=== PATIENT | male | born 1970 | race Caucasian/White ===

== ENCOUNTER → 2020-10-13 12:22 | Outpatient (BNVA) | payer OTHER, SELFPAY | PROVIDERS: PCP Internal Medicine; Referring Provider Internal Medicine; Visit Provider Physician Assistant ==

== ENCOUNTER 2020-11-03 08:21 | Outpatient (REF) | payer OTHER, SELFPAY ==
--- NOTE | ~2020-11-03 | XR_ITS ---
EXAMINATION: XR CHEST CLINICAL INFORMATION: Central hypertension COMPARISON: None TECHNIQUE: 2 views of the chest were obtained. FINDINGS: No significant abnormality is noted involving the heart, lungs, mediastinum, bony thorax or soft tissues. XR/XR chest 2V IMPRESSION: Unremarkable examination.
--- NOTE | 2020-11-03 08:27 | ECG_ITS ---
Test Reason : HTN Blood Pressure : / mmHG Vent. Rate : 080 BPM Atrial Rate : 080 BPM P-R Int : 154 ms QRS Dur : 082 ms QT Int : 364 ms P-R-T Axes : 026 027 037 degrees QTc Int : 419 ms Normal sinus rhythm Normal ECG No previous ECGs available Referred By: Charlene Hernández Electronically Signed By:JANIA DODGE
[2020-11-03 09:02] LABS: MANUAL DIFF FLAG NO
[2020-11-03 09:12] LABS: Basophils Absolute Auto 0.1 X10*3/uL (0.0-0.2); Basophils Percent Auto 1.2 % (0-2); Eosinophils Absolute Auto 0.3 X10*3/uL (0.0-0.4); Eosinophils Percent Auto 6.7 % (0-4); Hematocrit 42.8 % (42-52); Hemoglobin 14.6 g/dl (14.0-18.0); Imm Gran Abs Auto 0.01 X10*3/uL (0.00-0.03); Imm Gran Pct Auto 0.2 % (0.0-0.4); Lymphocytes Absolute Auto 1.6 X10*3/uL (1.2-4.9); Lymphocytes Percent Auto 32.4 % (20-40); Mean Corpuscular HGB Conc 34.1 g/dl (31.0-36.0); Mean Corpuscular Hemoglobin 30.4 pg (27.0-33.0); Mean Platelet Volume 10.7 fL (9.4-12.4); Monocytes Absolute Auto 0.4 X10*3/uL (0.1-1.2); Monocytes Percent Auto 7.1 % (2-11); Neutrophils Absolute Auto 2.6 X10*3/uL (2.0-8.3); Neutrophils Percent Auto 52.4 % (45-73); Platelet Count 181 X10*3/uL (160-400); Red Blood Count 4.81 X10*6/uL (4.60-5.80); Red Cell Distribution Width 12.1 % (11.0-16.0); White Blood Count 4.9 X10*3/uL (4.8-10.8)
[2020-11-03 09:32] LABS: Estimated Average Glucose 105 mg/dL; Hemoglobin A1c % 5.3 %
[2020-11-03 09:36] LABS: Alanine Aminotransferase 33 U/L (0-40); Albumin Level 4.6 g/dL (3.5-5.0); Alkaline Phosphatase 53 U/L (39-117); Anion Gap 16 (12-20); Aspartate Amino Transferase 31 U/L (5-37); Bilirubin Total 0.5 mg/dL (0.0-1.0); Blood Urea Nitrogen 21 mg/dL (9-16); C Reactive Protein 0.37 mg/dL (< or = 0.50); Calcium 9.3 mg/dL (8.4-10.2); Carbon Dioxide 23 mmol/L (22-29); Chloride 103 mmol/L (96-108); Cholesterol 182 mg/dL; Estimated Glomerular Filt Rate > 60; Glucose Random 95 mg/dL (60-115); HDL Cholesterol 52 mg/dL; Iron 60 mcg/dL (45-160); LDL Cholesterol Calculated 116 mg/dl; Potassium 4.7 mmol/L (3.3-5.1); Sodium 137 mmol/L (135-145); Total Protein 7.3 g/dL (6.5-8.0); Triglycerides 74 mg/dL
[2020-11-03 09:44] LABS: Percent Iron Saturation 18 % (15-50); Total Iron Binding Capacity 335 mcg/dL (228-428); Unsaturated Iron Binding 275 ug/dL
[2020-11-03 09:59] LABS: TSH reflex Free T4 0.84 uIU/mL (0.32-4.0); Vitamin D 25-OH Total 23.4 ng/mL (>30)
[2020-11-03 10:00] LABS: Folate 12.6 ng/mL (> or = 4.0); Vitamin B12 492 pg/mL (200-900)
[2020-11-03 10:06] LABS: Ferritin 142 ng/mL (20-250)
[2020-11-04 12:31] LABS: H Pylori Breath Test NOT DETECTED (NOT DETECTED)
[2020-11-06 13:02] LABS: Insulin Level Total 3.7 uIU/mL
[2020-11-06 15:52] LABS: Calcium (PTHI) 9.4 mg/dL (8.6-10.3); PTHI 35 pg/mL (14-64)
[2020-11-07 05:45] LABS: Zinc 106 mcg/dL (60-130)
[2020-11-08 13:30] LABS: Vitamin B1 7 nmol/L (8-30)
[2020-11-08 18:51] LABS: Vitamin A 53 mcg/dL (38-98)
== END 2020-11-03 08:22 | disposition home or self-care (01) ==
LOC: HO.XRAY 08:21
PROVIDERS: PCP Internal Medicine; Visit Provider Physician Assistant
DX: I10 Essential (primary) hypertension (principal); E66.9 Obesity, unspecified; G47.30 Sleep apnea, unspecified
CPT/HCPCS: 36415; 71046; 80053; 80061; 82306; 82607; 82728; 82746; 83013; 83036; 83525; 83540; 83970; 84425; 84443; 84590; 84630; 85025; 86140; 93005

== ENCOUNTER → 2020-11-13 08:11 | Outpatient (BNVA) | payer OTHER, SELFPAY | PROVIDERS: PCP Internal Medicine; Visit Provider Dietitian, Registered | DX: E66.9 Obesity, unspecified (principal); J30.2 Other seasonal allergic rhinitis; Z68.36 Body mass index [BMI] 36.0-36.9, adult; Z71.3 Dietary counseling and surveillance | CPT/HCPCS: 97802 ==

== ENCOUNTER → 2020-11-24 08:10 | Outpatient (BNVA) | payer OTHER, SELFPAY | PROVIDERS: PCP Internal Medicine; Visit Provider Physician Assistant ==

== ENCOUNTER → 2020-12-08 08:15 | Outpatient (BNVA) | payer OTHER, SELFPAY | PROVIDERS: PCP Internal Medicine; Visit Provider Surgery ==

== ENCOUNTER 2020-12-12 08:18 | Outpatient (REF) | payer OTHER, SELFPAY | END 2020-12-12 08:19 | disposition home or self-care (01) | LOC: HO.US 08:18 | PROVIDERS: PCP Internal Medicine; Referring Provider Physician Assistant; Visit Provider Dietitian, Registered | DX: Z13.89 Encounter for screening for other disorder (principal) ==

== ENCOUNTER → 2020-12-13 08:08 | Outpatient (BNVA) | payer OTHER, SELFPAY | PROVIDERS: PCP Internal Medicine; Referring Provider Physician Assistant; Visit Provider Dietitian, Registered ==

== ENCOUNTER → 2020-12-18 08:03 | Outpatient (BNVA) | payer OTHER, SELFPAY | PROVIDERS: PCP Internal Medicine; Visit Provider Dietitian, Registered | DX: E66.9 Obesity, unspecified (principal); Z68.36 Body mass index [BMI] 36.0-36.9, adult | CPT/HCPCS: 97803 ==

== ENCOUNTER → 2021-01-22 14:42 | Outpatient (BNVA) | payer OTHER, SELFPAY | PROVIDERS: PCP Internal Medicine; Referring Provider Internal Medicine; Visit Provider Internal Medicine | DX: Z01.810 Encounter for preprocedural cardiovascular examination (principal); I31.9 Disease of pericardium, unspecified; E66.9 Obesity, unspecified; A69.20 Lyme disease, unspecified | CPT/HCPCS: 93005 ==

== ENCOUNTER → 2022-04-01 13:48 | Outpatient (BNVA) | payer OTHER, SELFPAY | PROVIDERS: PCP Internal Medicine; Visit Provider Internal Medicine | DX: Z01.810 Encounter for preprocedural cardiovascular examination (principal); I31.9 Disease of pericardium, unspecified; E66.9 Obesity, unspecified | CPT/HCPCS: 93005 ==

== ENCOUNTER 2022-04-01 14:35 | Outpatient (REF) | payer OTHER, SELFPAY ==
--- NOTE | ~2022-04-01 | XR_ITS ---
EXAMINATION: XR CHEST CLINICAL INFORMATION: Obesity COMPARISON: None TECHNIQUE: 2 views of the chest were obtained. FINDINGS: Lungs are clear. No focal consolidation or mass. Normal pulmonary vascularity. No pleural effusion or pneumothorax. Normal heart size. Minimal degenerative changes of the thoracic spine. XR/XR chest 2V IMPRESSION: No acute pulmonary disease.
== END 2022-04-01 14:36 | disposition home or self-care (01) ==
LOC: HO.XRAY 14:35
PROVIDERS: PCP Internal Medicine; Visit Provider Surgery
DX: Z01.810 Encounter for preprocedural cardiovascular examination (principal); I51.4 Myocarditis, unspecified; E66.9 Obesity, unspecified; Z68.39 Body mass index [BMI] 39.0-39.9, adult
CPT/HCPCS: 71046

== ENCOUNTER → 2022-04-05 08:27 | Outpatient (BNVA) | payer OTHER, SELFPAY | PROVIDERS: PCP Internal Medicine; Visit Provider Surgery | DX: Z13.89 Encounter for screening for other disorder (principal) ==

== ENCOUNTER 2022-04-23 07:56 | Outpatient (REF) | payer OTHER, SELFPAY ==
--- NOTE | ~2022-04-23 | FL_ITS ---
EXAMINATION: XR FLUOROSCOPY UPPER GI WITH AIR CLINICAL INFORMATION: Obesity. COMPARISON: None TECHNIQUE: Fluoroscopic assessment of the upper GI tract was performed in various upright and supine/prone obliquities utilizing thin and thick high density barium contrast material and effervescent granules. FINDINGS: The esophagus was normal in course, caliber, and contour. There was normal distensibility with no fixed segment of narrowing. No focal mucosal abnormality was identified. There was some retention of contrast in the right piriform sinus on multiple swallows noted. Mild esophageal dysmotility was observed. Contrast passed freely across the gastroesophageal junction into the stomach. Small sliding hiatal hernia. There was normal distensibility of the stomach with no focal abnormality identified. There was prompt gastric emptying into the duodenum which demonstrated a normal appearance. Mild gastroesophageal reflux was observed. FLUOROSCOPY TIME: 1.8 minutes DOSE AREA PRODUCT: 28.116 Gy-cm2 (beltran-centimeter squared) FL/FL upper GI w air IMPRESSION: Small sliding hiatal hernia with mild esophageal dysmotility. Mild gastroesophageal reflux noted. Mild retention of contrast in the right piriform sinus seen on multiple swallows.
--- NOTE | ~2022-04-23 | US_ITS ---
EXAMINATION: US COMPLETE ABDOMEN WITH LIVER ELASTOGRAPHY CLINICAL INFORMATION: Obesity. COMPARISON: None. TECHNIQUE: Real-time imaging of the abdominal viscera. Noninvasive ultrasound liver fibrosis assessment is performed using Janett ElastPQ point quantification shear wave elastography (2D-SWE) with a C5-2 MHz transducer. Multiple elastography samples are obtained. FINDINGS: PANCREAS: Limited. The visualized pancreatic head and body are normal in appearance. The remainder of the pancreas is obscured from visualization by the overlying bowel gas. ABDOMINAL AORTA: The proximal and distal aortic segments are normal in caliber. The mid segment is largely obscured by overlapping bowel gas. INFERIOR VENA CAVA: Visualized portions are normal. LIVER: Normal. The liver demonstrates normal size, contour and echogenicity. No focal lesion or intrahepatic biliary duct dilatation. The right lobe measures 18.2 cm in length. The left lobe measures 12.3 cm in length. Portal flow is towards the liver (hepatopetal). Shear wave liver elastography median stiffness is 1.43 m/s (reference: normal median stiffness is 1.3 m/s or less). IQR/median stiffness to assess sampling precision is 0.06 (reference: good quality data set is IQR/median stiffness of 0.15 or less). GALLBLADDER: Normal. The gallbladder is physiologically distended without evidence of stones, sludge, polyps, wall thickening or pericholecystic fluid. COMMON BILE DUCT: Normal in caliber measuring 0.5 cm in diameter. RIGHT KIDNEY: Normal. No hydronephrosis. No renal calculi or focal parenchymal lesions. The kidney measures 10.7 cm in maximum dimension. LEFT KIDNEY: Normal. No hydronephrosis. No renal calculi or focal parenchymal lesions. The kidney measures 10.7 cm in maximum dimension. SPLEEN: Normal. The spleen measures 11.4 cm in maximum dimension. FREE FLUID: None. US/US abdomen comp w elastography IMPRESSION: 1. There is generalized increase in hepatic echotexture, consistent with fatty infiltration or hepatocellular disease. Please correlate clinically. No focal hepatic mass or intrahepatic biliary dilatation is seen. 2. Liver elastography: Measurements are suggestive of compensated advanced chronic liver disease but need further test for confirmation. 3. Technically limited ultrasound examination of the pancreatic tail and abdominal aorta. REFERENCE: Society of Radiologists in Ultrasound Liver Stiffness Thresholds (2020): LIVER STIFFNESS THRESHOLDS: *Liver Stiffness equal or less than 1.3 m/s: High probability of being normal. *Liver Stiffness less than 1.7 m/s: In the absence of other known clinical signs, rules out compensated advanced chronic liver disease. *Liver Stiffness 1.7-2.1 m/s: Suggestive of compensated advanced chronic liver disease but need further test for confirmation. *Liver Stiffness over 2.1 m/s: Rules in compensated advanced chronic liver disease. *Liver Stiffness over 2.4 m/s: Suggestive of clinically significant portal hypertension. QUALITY OF DATA SET: *IQR/Median value equal or less than 0.15 implies a quality data set. *IQR/Median value over 0.15 implies a poor quality data set. SIGNIFICANT CHANGE FROM PRIOR EXAM: Significant change if liver stiffness measurement is 10% or greater from prior exam. OTHER CONSIDERATIONS: The stage of liver fibrosis may be overestimated in the setting of acute hepatitis, liver inflammation, elevated liver function tests, hepatic vascular congestion, obstructive cholestasis, non-fasting state, and infiltrative diseases such as amyloidosis and lymphoma. In some patients with NAFLD, the liver stiffness thresholds for compensated advanced chronic liver disease may be lower. In causes other than viral hepatitis and NAFLD, liver stiffness thresholds are not well established.
== END 2022-04-23 07:57 | disposition home or self-care (01) ==
LOC: HO.US 07:56
PROVIDERS: Visit Provider Surgery
DX: Z01.818 Encounter for other preprocedural examination (principal); E66.9 Obesity, unspecified; I51.4 Myocarditis, unspecified; K21.9 Gastro-esophageal reflux disease without esophagitis; Z68.39 Body mass index [BMI] 39.0-39.9, adult
CPT/HCPCS: 74246; 76705; 76981

== ENCOUNTER → 2022-04-29 09:02 | Outpatient (BNVA) | payer OTHER, SELFPAY | PROVIDERS: PCP Internal Medicine; Visit Provider Surgery | DX: Z13.89 Encounter for screening for other disorder (principal) ==

== ENCOUNTER → 2022-05-24 08:03 | Outpatient (BNVA) | payer OTHER, SELFPAY | PROVIDERS: PCP Internal Medicine; Visit Provider Surgery | DX: Z13.89 Encounter for screening for other disorder (principal) ==

== ENCOUNTER → 2022-05-30 13:00 | Outpatient (BNVA) | payer OTHER, SELFPAY | PROVIDERS: PCP Internal Medicine; Visit Provider Counselor Mental Health | DX: F41.1 Generalized anxiety disorder (principal); E66.9 Obesity, unspecified; Z86.59 Personal history of other mental and behavioral disorders | CPT/HCPCS: 90791 ==

== ENCOUNTER → 2022-06-21 13:08 | Outpatient (BNVA) | payer OTHER, SELFPAY | PROVIDERS: PCP Internal Medicine; Visit Provider Surgery | DX: Z13.89 Encounter for screening for other disorder (principal) ==

== ENCOUNTER 2022-06-28 09:23 | Outpatient (REF) | payer OTHER, SELFPAY ==
[2022-06-28 10:53] LABS: MANUAL DIFF FLAG NO
[2022-06-28 12:01] LABS: Prothrombin Time 11.2 SEC (10.0-13.1)
[2022-06-28 12:02] LABS: Basophils Absolute Auto 0.1 X10*3/uL (0.0-0.2); Basophils Percent Auto 0.8 % (0-2); Eosinophils Absolute Auto 0.2 X10*3/uL (0.0-0.4); Eosinophils Percent Auto 3.7 % (0-4); Hemoglobin 14.5 g/dl (14.0-18.0); Imm Gran Abs Auto 0.02 X10*3/uL (0.00-0.03); Imm Gran Pct Auto 0.3 % (0.0-0.4); Lymphocytes Absolute Auto 1.4 X10*3/uL (1.2-4.9); Lymphocytes Percent Auto 22.3 % (20-40); Mean Corpuscular HGB Conc 33.7 g/dl (31.0-36.0); Mean Corpuscular Hemoglobin 29.4 pg (27.0-33.0); Mean Corpuscular Volume 87.2 fL (80.0-98.0); Mean Platelet Volume 10.4 fL (9.4-12.4); Monocytes Absolute Auto 0.4 X10*3/uL (0.1-1.2); Monocytes Percent Auto 6.6 % (2-11); Neutrophils Absolute Auto 4.1 x10*3/uL (2.0-8.3); Neutrophils Percent Auto 66.3 % (45-73); Platelet Count 205 X10*3/uL (160-400); Red Blood Count 4.93 X10*6/uL (4.60-5.80); Red Cell Distribution Width 12.9 % (11.0-16.0); White Blood Count 6.2 X10*3/uL (4.8-10.8)
[2022-06-28 12:04] LABS: Partial Thromboplastin Time 30.2 SEC (26.0-36.4)
[2022-06-28 12:30] LABS: Estimated Average Glucose 108 mg/dL; Hemoglobin A1c % 5.4 %
[2022-06-28 13:44] LABS: Alanine Aminotransferase 26 U/L (0-40); Albumin Level 4.5 g/dL (3.5-5.0); Alkaline Phosphatase 76 U/L (39-117); Anion Gap 17 (12-20); Aspartate Amino Transferase 26 U/L (5-37); Bilirubin Total 0.7 mg/dL (0.0-1.0); Blood Urea Nitrogen 15 mg/dL (9-16); C Reactive Protein 0.74 mg/dL (< or = 0.50); Calcium 8.9 mg/dL (8.4-10.2); Carbon Dioxide 25 mmol/L (22-29); Chloride 105 mmol/L (96-108); Cholesterol 229 mg/dL; Estimated Glomerular Filt Rate > 60; Glucose Random 108 mg/dL (60-115); HDL Cholesterol 65 mg/dL; LDL Cholesterol Calculated 149 mg/dl; Potassium 4.6 mmol/L (3.3-5.1); Sodium 142 mmol/L (135-145); Triglycerides 79 mg/dL
[2022-06-28 14:00] LABS: Insulin 10 uU/mL (2-29); TSH reflex Free T4 0.99 uIU/mL (0.32-4.0)
== END 2022-06-28 09:24 | disposition home or self-care (01) ==
LOC: HO.LAB 09:23
PROVIDERS: PCP Internal Medicine; Referring Provider Internal Medicine; Visit Provider Surgery
DX: E66.9 Obesity, unspecified (principal); Z68.35 Body mass index [BMI] 35.0-35.9, adult; K21.9 Gastro-esophageal reflux disease without esophagitis
CPT/HCPCS: 36415; 80053; 80061; 83036; 83525; 84443; 85025; 85610; 85730; 86140

== ENCOUNTER 2022-07-09 07:23 | Inpatient (IN) | payer OTHER, SELFPAY ==
--- NOTE | 2022-07-04 23:09 | MHC.SHP ---
Pre-Procedural Eval Section A Date of Service: 07/04/22 The patient is an INPATIENT: Yes The History & Physical has been completed within 30 days and I have reviewed it.: Yes Section B Chief Complaint: Obesity, unspecified Relevant Family History (Specify if Yes): No Relevant Social History: None Present Medications: None Medical History: No relevant PMH History of Previous Operations: No relevant previous surgery Allergies: Allergies Allergy/AdvReac Type Severity Reaction Status Date / Time Seasonal Allergies Allergy Severe Anaphylaxis Verified 06/28/22 14:20 Review of Systems Sugical H&P ROS: Negative: Constitution, Cardiovascular, Respiratory, Neurological, Psychiatric, Hem-Onc, Allergic/Immunologic, Gastrointestinal, Genitourinary, Musculoskeletal, Integumentary, Endocrine and Eyes/Ears/Nose/Throat Exam Surgical H&P Exam: Normal: HEENT, Normal: Heart, Normal: Lungs, Normal: Extremities, Normal: Abdomen, Normal: Skin and Normal: Neurological Plan Diagnosis/Plan: Unchanged I have reviewed the history and physical and performed a pertinent physical examination on my patient. No changes have occurred unless specified. Time Spent With Patient Time: Total time managing care of this patient today ____ minutes.
[2022-07-05 09:28] VITALS: BMI 34.6
--- NOTE | 2022-07-08 10:44 | P.CONAN_ITS ---
HPI - Anesthesia Eval Consult details Narrative: 51yo M for Gastrectomy Sleeve EGD possible diaphragmatic hernia,possible ventral hernia,possible open. Cardiac cleared [facility] Active Problems Active Problems: All Active Problems (Updated 07/05/22 @ 10:12 by Kallie Barahona RN) Obesity (Acute) Sleep apnea with use of continuous positive airway pressure (CPAP) (Acute) Hypertension (Acute) History of depression (Acute) Adjustment disorder, unspecified (Acute) Obesity (Acute) BMI 37.0-37.9, adult (Acute) Vitamin B1 deficiency (Acute) Vitamin B12 deficiency (Acute) Myocarditis (Acute) Preoperative cardiovascular examination (Acute) Lyme disease (Acute) Pericarditis (Acute) BMI 39.0-39.9,adult (Acute) BMI 38.0-38.9,adult (Acute) BMI 35.0-35.9,adult (Acute) AMAYA (generalized anxiety disorder) (Acute) GERD (gastroesophageal reflux disease) (Acute) Past Medical History Medical History Anxiety and depression GERD (gastroesophageal reflux disease) History of Clostridioides difficile colitis History of pericarditis HTN (hypertension) Hx of Lyme disease Insomnia RUI on CPAP Family History Family History Mother Hypertension Father No problems noted. Sister No problems noted. Daughter No problems noted. Daughter No problems noted. Surgical History Surgical History Hx of colonoscopy Hx of endoscopy Social History Social History Household Members: Significant Other Housing: House Are you a primary managed care coordinator to a significant other at home: Yes Do you presently have visiting nurse or other home services: No Alcohol intake: current Alcohol intake frequency: former alcohol drinker Patient Tobacco Use Status: Never used Tobacco Meds Allergies Allergy/AdvReac Type Severity Reaction Status Date / Time Seasonal Allergies Allergy Severe Unknown Verified 07/05/22 09:54 Home Medications Medication Instructions Recorded Confirmed Last Taken Type fluoxetine 20 mg capsule (Prozac) 20 mg PO DAILY 10/13/20 07/05/22 Unknown History diltiazem HCl 120 mg 120 mg PO DAILY 01/11/22 07/05/22 Unknown History capsule,extended release 24 hr, controlled (DILT-XR) melatonin 3 mg capsule 3 mg PO BEDTIME PRN Sleep 01/23/22 07/05/22 Unknown History tadalafil 20 mg tablet 10 mg PO DAILY PRN Sexual Activity 04/01/22 07/05/22 Unknown History ondansetron 4 mg disintegrating 4 mg PO Q8H PRN Nausea And Vomiting 07/05/22 07/05/22 Unknown History tablet Exam Exam Date and Time: July 08, 2022 1044 Height,Weight and Vital Signs: Height 5 ft 6 in Weight 97.341 kg Pertinent Lab Results Pertinent Lab Results: Laboratory Tests 06/28/22 10:50 Blood Type O Positive Antibody Screen NEGATIVE Laboratory Tests 06/28/22 06/28/22 10:50 10:50 WBC 6.2 Hgb 14.5 Hct 43.0 Plt Count 205 Sodium 142 Potassium 4.6 Chloride 105 Carbon Dioxide 25 BUN 15 Creatinine 1.01 Narrative Narrative: EKG 03/2022 sinus rhythm at 81/Min; no significant ST-T changes and otherwise unremarkable.? Normal NV and corrected QT Per 03/2022 cardiac note E[facility]ocardiogram [facility]-LVEF 73% without any wall motion a bnormalities; no significant valvular pathology.? Pulmonary hypertension not commented upon as there was no significant tricuspid regurgitation.? Otherwise unremarkable.? In the 14 day cardiac event monitor, average heart rate was 74/Min.? No significant arrhythmias otherwise. Assessment and Plan Assessment Anesthesia Assessment: Chart Reviewed
[2022-07-08 15:30] LABS: COVID-19 Test Negative (Negative); IDNOW Serial# 08D9AD1C
[2022-07-09] VITALS (10 sets, daily range): BP systolic 123–154; BP diastolic 70–85; PULSE 71–106; RESP 16–20; TEMP 36.1–36.9; O2SAT 94–99
--- NOTE | 2022-07-09 07:34 | PC.NURSE ---
patient intialed blood refusal on surgical consent. per patient he wants blood if it is necessary during the procedure and does not refuse blood. per Partha Warner, clinic physician director mihai to use single line cross out on consent with patient intials with the word error.
--- NOTE | 2022-07-09 07:48 | PHA.MEDREC ---
Pharmacy Consult ? Medication Reconciliation Pharmacy has completed the medication reconciliation. Reviewed med rec done by nursing
[2022-07-09] MEDS: Lactated Ringers 1,000 ML 100 ML IVCONT ×3 (07:50→20:36)
[2022-07-09] MEDS: Aprepitant 32 MG/4.4 ML VIAL IVPUSH (07:50)
--- NOTE | 2022-07-09 08:31 | PM.OP ---
Brief Operative Note Date of Service: 07/09/22 Pre-op diagnosis: Severe obesity with comorbidities (see below) Post-op diagnosis: same Procedure: INITIAL PATIENT BMI ON PRESENTATION AT OUR OFFICE: 33.7 kg/m2 LAST BMI BEFORE SURGERY: 30.7 kg/m2 COMORBIDITIES: sleep apnea on CPAP, hypertension, depression, anxiety, insomnia, liver steatosis, diaphragmatic hernia, GERD ?The patient presented to the Weight Management Program with significant obesity that was negatively impacting the patient's comorbidities as listed above.? The program is a phased program with a special focus on preoperative medical weight management to promote substantial weight loss and prepare the patients for the second phase of the program: bariatric surgery. The patient participated in an intensive weekly lifestyle ?intervention and exercise program during which the patient ?has lost between the initial office visit and the last preoperative visit 30.7lbs, or 12.52% of initial actual body weight. It was deemed appropriate for the patient to now have bariatric surgery. In light of the current Covid-19 pandemic and the well documented strong association of obesity and increased risk of worse outcomes if infected with Covid-19 (REFERENCES:https://pubmed.ncbi.nlm.nih.gov/59589753/,?https://pubmed.ncbi.nlm.nih.gov/72091218/), any delay in undergoing bariatric surgery may lead to the patient's worsening health condition and increased?risk of more severe Covid-19 disease if infected. In addition a recent?study from [facility] published in [facility] on 03/12/2021 ([email or web address]) found that, among patients with obesity, substantial weight loss achieved with surgery was associated with improved outcomes of COVID-19 infection. The findings suggest that obesity can be a modifiable risk factor for the severity of COVID-19 infection. In addition, the patient met the BMI-criteria for bariatric surgery based on the BMI on initial presentation. The patient should not be penalized for achieving such weight loss because ?it is not sustainable long-term without surgical intervention and it was achieved in preparation for bariatric surgery ?under my direction and based on my published research ([email or web address] and?https://www.soard.org/article/[email or web address])87830-X/pdf) ?that a 10% preoperative weight loss improves long-term weight loss after surgery and reduces perioperative complications.? Insurance carriers such as [facility] have endorsed my recommendations ?and have included in their policies criteria to include a 10% preoperative weight loss requirement. PROCEDURE: Esophago-gastroscopy, laparoscopic lysis of adhesions, laparoscopic sleeve gastrectomy and laparoscopic gastropexy INDICATIONS: This is a 51 year-old male who was electively scheduled for laparoscopic, possibly open sleeve gastrectomy. The risks and complications of the procedure were discussed with the patient in advance, particularly the possibility of ; pulmonary embolism; staple line leak; bleeding; GERD; cardiac, pulmonary, or renal complications; as well as long-term problems such as insufficient weight loss, vitamin deficiency, strictures, or ulcers. The patient understood all the risks, and was in agreement to proceed with surgery. DESCRIPTION OF PROCEDURE: After informed consent was obtained from the patient, the patient was given preoperative antibiotics, and was transferred to the operating room. After successful induction of general anesthesia, pneumatic compression devices were placed on both lower extremities. An upper endoscopy was performed next. The oropharynx and esophagus appeared to be within normal limits. There was no diaphragmatic hernia present consistent with the findings of the preoperative upper GI. The stomach was entered. Then after all fluid and air were suctioned and the stomach was fully decompressed, the scope was withdrawn and secured in the mid esophagus. The patient was then prepped and draped in the usual sterile manner, and abdominal access was established at the right upper quadrant with the Markell technique. A 12 mm blunt port was inserted, and the abdomen was insufflated with CO2 to a pressure of 15 mmHg. Under direct visualization, additional ports were placed, specifically two 5 mm Versi-step ports to the left upper quadrant, and a 5 mm Versi-Step port to the right upper quadrant. 1% lidocaine plain was used to infiltrate all port sites as well as all fascia defects. Following that, the patient was placed in a steep reverse Trendelenburg position. An additional 5 mm port was placed to the right flank for the Mediflex retractor that was used to retract the left lobe of the liver. The gastro-esophageal fat pad was opened with the ultrasonic device (Thunderbeat, Olympus) and the anterior esophagus and hiatus were exposed. The angle of His was opened with the ultrasonic device the fundus of the stomach from any diaphragmatic and splenic attachments. I then opened the gastrocolic ligament between the transverse colon and the greater curvature of the stomach with the ultrasonic device to enter the lesser sac and facilitate the ligation of the short gastric vessels. I started at a mid-point along the greater curvature and using the Thunderbeat, all short gastric vessels were divided all the way to the angle of His until the left kulwinder was completely dissected at its entirety. I then divided the gastro-colic ligament distally to a distance of about 3-4 cm proximal to the pylorus. There were extensive congenital adhesions between the pancreas and posterior gastric wall. Those were lysed completely with the ultrasonic device. Adhesiolysis took approximately 45 min to complete. The stomach was then divided transversely with one Endo SAEED-45 purple, two SAEED-45 orange loads and four SAEED-60 articulating orange loads using the AEON stapler and loads. Every effort was made that the gastric sleeve had a tubular shape and an even caliber throughout. Once the sleeve resection was completed, the staple line of the gastric sleeve was reinforced with Hemoclips. The resected stomach was retrieved without difficulty from the Markell port. A gastropexy was then performed in order to prevent postoperative GERD and partial gastric volvulus. Several interrupted 2.0 Surgidac sutures were placed between the sleeve's staple line and the previously divided greater omentum and gastro-colic ligament using the Endo-Stitch device. ?An upper endoscopy was performed. There was no narrowing at the GE junction. The scope was easily advanced all the way to the pylorus which was clearly visualized. There was no narrowing anywhere and the sleeve's caliber was even throughout. The sleeve's staple line was inspected and there was no evidence of ischemia, bleeding or dehiscence. At that point the gastroscope was withdrawn from the patient?s mouth while we were decompressing the bowel and the stomach from any remaining air. I looked into the lesser sac to see how the sleeve was situating and it was situating well. There was no bleeding from the staple line, spleen, or short gastric vessels. The Mediflex retractor was removed, and the undersurface of the liver was inspected and there was no bleeding. The patient was placed in supine position. I closed the fascial defect of the 12 mm port site with a figure of eight #1 Polysorb suture. Then 30cc Ropivacaine plain with 10 mg of Dexamethasone were used to infiltrate the fascial closure as well as all skin incisions. A total of 7ml Zynrelef was applied in the Markell wound. At this point, the abdomen was deflated, all ports were removed under direct vision, and no bleeding was noted from any of the port sites. The skin incisions were irrigated with saline and were closed with 4-0 absorbable monofilament sutures. Steri-Strips and OpSites were used to cover all incisions. The patient was extubated and was transferred in stable condition to the recovery room for further care. I was present and performed all marlow parts of the procedure. Edgar was the special education teaching assistant. There were no residents to assist with this case. Robert Mayberry MD, PhD, FACS Surgeon: Lito Mayberry MD Anesthesia: GETA, local and other (TAP block and 7ml Zynrelef) Was an Vp Strategic Planning used for this Procedure?: No Vp Strategic Planning: Charlene Hernández Estimated blood loss (mL): 10 IV fluids (mL): 2,600 Urine output (mL): 0 (No Burns to record output) Pathology: other (Stomach) Condition: stable Disposition: PACU
--- NOTE | 2022-07-09 08:40 | PM.PNGS ---
Subjective Subjective Date of Service: 07/10/22 Interval history: Feels well. Mild incisional pain. He is tolerating phase 1 bariatric diet Physical Exam Vital Signs: Vital Signs: Last Vital Signs Temp 98.0 F 07/09/22 07:46 Pulse 106 H 07/09/22 07:46 Resp 16 07/09/22 07:46 BP 123/77 07/09/22 07:46 Pulse Ox 99 07/09/22 07:46 O2 Del Method Room Air 07/09/22 07:46 BMI result Body Mass Index 34.6 GI: Inspection: Yes normal to inspection, Yes incision (clean, dry and intact) and Yes obesity Palpation (GI): Soft to palpation Extrem: Right lower extremity: normal to inspection (no calf tenderness) Left lower extremity: normal to inspection (no calf tenderness) Objective Data Active Medications Lactated Ringer's (Lr) 1,000 mls @ 100 mls/hr IVCONT .Q10H TALHA Last Admin: 07/09/22 07:50 Dose: 100 mls/hr Documented By: HERON Labs 07/10/22 06:08 07/10/22 06:08 Labs: Laboratory Results - last 24 hr 07/08/22 14:55 COVID-19 (DONAVAN) Negative COVID-19 Clin Com See Note Procedures Date of Service Date of Service: 07/10/22 Progress Note: A&P Assessment and plan (1) Obesity: Status: Acute Assessment and Plan: s/p laparoscopic sleeve gastrectomy, lysis of adhesions and gastropexy Doing well Will check am labs and if OK the patient will be discharged home (2) BMI 33.0-33.9,adult: Status: Acute (3) Sleep apnea with use of continuous positive airway pressure (CPAP): Status: Acute (4) Hypertension: Status: Acute (5) History of depression: Status: Acute (6) GERD (gastroesophageal reflux disease): Status: Acute (7) Diaphragmatic hernia: Status: Acute (8) Steatosis, liver: Status: Acute (9) Insomnia: Status: Acute (10) S/P laparoscopic sleeve gastrectomy: Status: Acute (11) Congenital intra-abdominal adhesions: Status: Acute Time Spent With Patient Time: Total time managing care of this patient today ____ minutes. Quality Stroke Does the patient have a stroke diagnosis?: No VTE Prior VTE?: No VTE Risk Level:: Surgical - moderate VTE Device Contraindication: N/A - Device Ordered VTE Drug Contraindication: Treatment Not Indicated
--- NOTE | 2022-07-09 09:45 | HO.ANESPROP2 ---
[facility] Active Problems Active Problems: All Active Problems (Updated 07/09/22 @ 08:42 by Lito Mayberry MD) Insomnia (Acute) Steatosis, liver (Acute) Diaphragmatic hernia (Acute) BMI 33.0-33.9,adult (Acute) Obesity (Acute) Sleep apnea with use of continuous positive airway pressure (CPAP) (Acute) Hypertension (Acute) History of depression (Acute) Adjustment disorder, unspecified (Acute) Obesity (Acute) BMI 37.0-37.9, adult (Acute) Vitamin B1 deficiency (Acute) Vitamin B12 deficiency (Acute) Myocarditis (Acute) Preoperative cardiovascular examination (Acute) Lyme disease (Acute) Pericarditis (Acute) BMI 39.0-39.9,adult (Acute) BMI 38.0-38.9,adult (Acute) BMI 35.0-35.9,adult (Acute) AMAYA (generalized anxiety disorder) (Acute) GERD (gastroesophageal reflux disease) (Acute) Past Medical History Medical History Anxiety and depression GERD (gastroesophageal reflux disease) History of Clostridioides difficile colitis History of pericarditis HTN (hypertension) Hx of Lyme disease Insomnia RUI on CPAP Family History Family History Mother Hypertension Father No problems noted. Sister No problems noted. Daughter No problems noted. Daughter No problems noted. Surgical History Surgical History Hx of colonoscopy Hx of endoscopy History of Problems with Anesthesia: No Social History Social History Are you a primary spiritual care coordinator to a significant other at home: Yes Do you presently have visiting nurse or other home services: No Alcohol intake: current Alcohol intake frequency: former alcohol drinker Patient Tobacco Use Status: Never used Tobacco Use of substances other than those prescribed or required for medical reasons: No Have you been hit, kicked, punched, or otherwise hurt by someone within the past year? If so, by whom?: No Advance Directives: No Advance Directives Information Provided: Yes Advance Directives on File: No Recently lost weight without trying: No Nutrition Risks: No Nutritional Risk Poor oral hygiene: No Meds Allergies Allergy/AdvReac Type Severity Reaction Status Date / Time Seasonal Allergies Allergy Severe Unknown Verified 07/05/22 09:54 Active Medications: Current Medications Lactated Ringer's (Lr) 1,000 mls @ 100 mls/hr IVCONT .Q10H TALHA Last Admin: 07/09/22 07:50 Dose: 100 mls/hr Home Medications Medication Instructions Recorded Confirmed Last Taken Type fluoxetine 20 mg capsule (Prozac) 20 mg PO DAILY 10/13/20 07/05/22 Unknown History diltiazem HCl 120 mg 120 mg PO DAILY 01/11/22 07/05/22 Unknown History capsule,extended release 24 hr, controlled (DILT-XR) melatonin 3 mg capsule 3 mg PO BEDTIME PRN Sleep 01/23/22 07/05/22 Unknown History omeprazole 20 mg capsule,delayed 20 mg PO DAILY 01/23/22 07/05/22 Unknown History release tadalafil 20 mg tablet 10 mg PO DAILY PRN Sexual Activity 04/01/22 07/05/22 Unknown History ondansetron 4 mg disintegrating 4 mg PO Q8H PRN Nausea And Vomiting 07/05/22 07/05/22 Unknown History tablet Exam Exam Date and Time: July 09, 2022 0945 Height,Weight and Vital Signs: Height 5 ft 6 in Weight 97.341 kg Last Vital Signs Temp 98.0 F 07/09/22 07:46 Pulse 106 H 07/09/22 07:46 Resp 16 07/09/22 07:46 BP 123/77 07/09/22 07:46 Pulse Ox 99 07/09/22 07:46 O2 Del Method Room Air 07/09/22 07:46 Pertinent Lab Results Pertinent Lab Results: Laboratory Tests 06/28/22 07/08/22 10:50 14:55 COVID-19 ([facility]) Negative COVID-19 Clin Com See Note Blood Type O Positive Antibody Screen NEGATIVE Airway Mallampati Class: III (full raya) TM Dist: >3cm Neck ROM: Full Loose/Missing/Broken Teeth: No Heart: RRR Lungs: CTA Assessment and Plan Assessment Anesthesia Assessment: Anesthesia Plan Discussed and Chart Reviewed Final Anesthetic Review History of Problems with Anesthesia: No NPO: Yes ASA Class: III Final Preanesthetic Review: Meds/Allgs Chart Reviewed, Consent Obtained/Reviewed and Anes Risks/Benef Reviewed Patient Risk: Intermediate Procedure Risk: Intermediate Anesthetic Plan Anesthetic Plan: GA Disposition: Standard PACU
--- NOTE | 2022-07-09 11:32 | PM.DS ---
DS: Providers Provider Date of Service: 07/10/22 Date of admission: 07/09/22 07:23 Primary care physician: Sergey Mario MD DS: Diagnosis Discharge Diagnosis (1) Obesity: Status: Acute (2) BMI 33.0-33.9,adult: Status: Acute (3) Sleep apnea with use of continuous positive airway pressure (CPAP): Status: Acute (4) Hypertension: Status: Acute (5) History of depression: Status: Acute (6) GERD (gastroesophageal reflux disease): Status: Acute (7) Diaphragmatic hernia: Status: Acute (8) Steatosis, liver: Status: Acute (9) Insomnia: Status: Acute (10) S/P laparoscopic sleeve gastrectomy: Status: Acute DS: Summary Hospital Course Hospital Course: ADMITTING DIAGNOSIS: obesity, HTN, RUI, GERD DISCHARGE DIAGNOSIS: same, s/p laparoscopic sleeve gastrectomy PAST SURGICAL HISTORY: PROCEDURE: upper endoscopy, laparoscopic sleeve gastrectomy DISCHARGE SUMMARY: History of Present Illness: The patient is a 51 year-old man with a BMI of 38.2 kg/m2 and associated co-morbidities as described above. The patient had extensive work-up, lost 26.9 lbs preoperatively and was electively scheduled for laparoscopic, possible open sleeve gastrectomy and gastropexy. Risks and complications of the surgery were discussed with the patient in advance, particularly the possibility of , pulmonary embolism, anastomotic leak, bleeding, bowel injury, GERD, cardiac, renal or pulmonary complications. The patient understood all the risks and was in agreement with the surgical plan. Hospital Course: The patient underwent an uneventful laparoscopic sleeve gastrectomy with gastropexy on the day of admission. Postoperatively, the patient was transferred to the surgical floor. The patient received IV Acetaminophen and IV dilaudid for pain control. Patient was started on bariatric phase 1 diet POD #0. On postoperative day one, the patient was feeling well without nausea, vomiting, fevers, or tachycardia. The patient had some mild incisional pain and the abdomen was soft. On the morning of postoperative day one, the patient was continued on 1 ounce of water or ice every half hour. During the day, the patient did fairly well, having some incisional pain, but able to ambulate adequately and to tolerate liquids well. Since the patient is doing well, we decided that the patient was ready to be discharged. The patient was given instructions to follow-up with me next week and to call my office for any fever over 101, persistent abdominal pain, nausea, vomiting, GERD, symptoms of DVT such as calf tenderness, or leg swelling, or pulmonary embolism such as chest pain or shortness of breath. The patient was also instructed to drink 40-60 ounces of liquids per day using the 1-ounce cups. The patient had been given prescriptions for Tylenol for pain, Zofran prn for nausea, and pantoprazole and carafate previously. The patient was encouraged to ambulate and use the incentive spirometer. The patient was allowed to shower, but no baths, and encouraged to stay active at home. All of these instructions were given to the patient personally. All questions were answered and the patient understood all instructions, the instructions were also given to the patient in print. Time Spent with Patient Time attestation: Total time managing care of this patient today ____ minutes. Discharge coordination time: Less than 30 minutes Quality: Safe Use of Opioids Does Pt have an Active Cancer Diagnosis on the Problem List?: No Quality: Stroke Does the patient have a stroke diagnosis?: No Physical Exam Vital Signs: Vital Signs: Last Vital Signs Temp 97.8 F 07/09/22 11:25 Pulse 97 07/09/22 11:25 Resp 18 07/09/22 11:25 BP 140/77 H 07/09/22 11:25 Pulse Ox 99 07/09/22 11:25 O2 Del Method Simple Mask 07/09/22 11:25 O2 Flow Rate 6 07/09/22 11:25 BMI result Body Mass Index 34.6 DS: Data Data Completed and Pending Pending studies at discharge: Pending at discharge 07/09/22 10:32 Surgical [PTH] Routine Labs on day of discharge: Laboratory Results - last 24 hr 07/08/22 14:55 COVID-19 ([facility]) Negative COVID-19 Clin Com See Note Discharge Plan Discharge Anticipated Discharge Date/Time: 07/10/22 10:28 Patient Disposition: Home, Self-Care Discharge Diagnosis: s/p sleeve gastrectomy Referrals: Sergey Mario MD [Primary Care Provider] - 1 Week Discharge Medications: Continued ondansetron 4 mg tablet,disintegrating 4 mg PO Q8H PRN (Reason: Nausea And Vomiting) fluoxetine [Prozac] 20 mg capsule 20 mg PO DAILY melatonin 3 mg capsule 3 mg PO BEDTIME PRN (Reason: Sleep) diltiazem HCl [DILT-XR] 120 mg capsule,ext.rel 24h degradable 120 mg PO DAILY pantoprazole 40 mg tablet,delayed release (DR/EC) 40 mg PO DAILY Qty: 30 2RF sucralfate 100 mg/mL suspension 10 ml PO BID Qty: 400 2RF Held tadalafil 20 mg tablet 10 mg PO DAILY PRN (Reason: Sexual Activity) Hold Instructions: Resume after 4 weeks Discontinued cholecalciferol (vitamin D3) 25 mcg (1,000 unit) capsule 25 mcg PO DAILY Qty: 30 6RF phentermine 37.5 mg capsule 37.5 mg PO DAILY Qty: 8 0RF Rx Instructions: must administer 30 minutes before or 1-2 hours after breakfast omeprazole 20 mg capsule,delayed release(DR/EC) 20 mg PO DAILY Discharge Orders: Discharge Order (Routine); Ordered 07/10/22 Ordered By: Lito Mayberry Activity on Discharge: No heavy lifting Stand Alone Forms: Patient Portal Discharge page Care Plan Goals: weight loss Health Concerns: obesity Plan of Treatment: No tub baths, sex or returning to work until discussed at first post op appointment. No exercise, alcohol, tobacco or illegal drug use. Continue to use incentive spirometer hourly while awake. Walk in home for 5- 10 minutes every 2 hours during the first week. Continue phase 1 diet today and start phase 2 diet tomorrow morning. Follow all instructions in the bariatric handbook and call with any questions. 1. Please call your doctor or come back to the emergency room should any new symptoms arise. 2. You will receive a courtesy call from [facility] 24-48 hours after discharge. 3. Activity: abstain from alcohol, practice limited stair climbing, no bending, no driving, no exercise, no illicit substances, no lifting, no sex, no tub bath, no work. 4. Diet: continue as discussed with bariatric team.. 5. Dressing Change/Wound Care: Do not change or remove surgical dressings unless they are wet or soiled. 6. Call your doctor if: - Your temperature exceeds 101.5 F - You experience excessive pain or swelling - You have an unexpected reaction to medication - You have excessive bleeding - You experience continued vomiting/nausea - Your incision begins to separate - Your incision shows signs of infection such as increased redness, swelling, excessive pain, heat, or drainage (light blood or clear fluid is normal) 7. General instructions: No lifting greater than 5 lbs for the next 4 weeks[address] driving within 24 hours of taking narcotic pain medications. If you do not move your bowels in the next 2 days, please take milk of magnesia over the counter. Please follow the post op diet and do not advance your diet until you are seen in the office in about 2 weeks. Please walk around your home every hour or two to prevent blood clots from forming in your legs. You do not need to wake from sleeping to walk. Please sleep in a bed or couch to prevent kinking at the hips and knees. Please take your incentive spirometer (your lung egg worker) home with you and use it for the next few days to prevent pneumonias. You may shower, no hot tubs, baths or swimming pools. Please call the office with any questions or concerns such as increasing abdominal pain, fever, chills, shortness of breath, chest pain, leg pain or swelling, or redness or drainage from your incisions. Do not hesitate to contact the office with any questions at . The patient's medical history has been reviewed and they are considered low risk for post op DVT and therefore DVT prophylaxis is not considered necessary. Travel after surgery was reviewed. The patient has not disclosed any travel plans during the first 30 days after surgery and they have been advised that within the first 30 days after surgery any bus, plane, train or car travel over 2 hours in duration is contraindicated due to the possibility of developing blood clots from immobility. Any travel, needs to include periods of ambulation of 10 minutes in duration every 2 hours. The patient was instructed to discuss any plans for travel during this period with their bariatric surgeon. Assessment: stable, spost op sleeve gsatrectomy
[2022-07-09 12:14] LABS: Hematocrit 43.8 % (42.0-52.0); Hemoglobin 14.7 g/dl (14.0-18.0)
[2022-07-09 12:25] LABS: Anion Gap 19 (12-20); Blood Urea Nitrogen 15 mg/dL (9-16); Calcium 8.7 mg/dL (8.4-10.2); Carbon Dioxide 20 mmol/L (22-29); Chloride 103 mmol/L (96-108); Creatinine Clr Calc Pharmacy 112.2; Estimated Glomerular Filt Rate > 60; Glucose Random 129 mg/dL (60-115); Potassium 5.1 mmol/L (3.3-5.1); Sodium 137 mmol/L (135-145)
[2022-07-09] MEDS: Famotidine/PF 20 MG/2 ML VIAL IVPUSH ×2 (12:41→20:35)
[2022-07-09] MEDS: ceFAZolin Sodium/Dextrose,Iso 2 GM/50 ML PIGGYBACK IV (14:02)
[2022-07-09] MEDS: Acetaminophen 1,000 MG/100 ML PIGGYBACK 16.7 MG IV ×2 (15:27→20:36)
[2022-07-09] MEDS: 0.9 % Sodium Chloride Flush 3 ML SYRINGE IVFLUSH (20:36)
[2022-07-09] MEDS: dilTIAZem HCL SR 60 MG CAP.ER.12H 120 MG PO (23:25)
[2022-07-10] MEDS: Acetaminophen 1,000 MG/100 ML PIGGYBACK 16.7 MG IV (02:28)
[2022-07-10 04:00] VITALS: BP 134/75; PULSE 77; RESP 16; TEMP 36.5; O2SAT 97
[2022-07-10] MEDS: Lactated Ringers 1,000 ML 100 ML IVCONT (06:00)
[2022-07-10 06:38] LABS: MANUAL DIFF FLAG NO
[2022-07-10 07:00] LABS: Basophils Percent Auto 0.2 % (0-2); Hematocrit 41.7 % (42.0-52.0); Hemoglobin 14.2 g/dl (14.0-18.0); Imm Gran Abs Auto 0.03 X10*3/uL (0.00-0.03); Imm Gran Pct Auto 0.5 % (0.0-0.4); Lymphocytes Absolute Auto 0.6 X10*3/uL (1.2-4.9); Lymphocytes Percent Auto 8.4 % (20-40); Mean Corpuscular HGB Conc 34.1 g/dl (31.0-36.0); Mean Corpuscular Hemoglobin 29.6 pg (27.0-33.0); Mean Corpuscular Volume 86.9 fL (80.0-98.0); Mean Platelet Volume 11.2 fL (9.4-12.4); Monocytes Absolute Auto 0.3 X10*3/uL (0.1-1.2); Monocytes Percent Auto 5.2 % (2-11); Neutrophils Absolute Auto 5.6 x10*3/uL (2.0-8.3); Neutrophils Percent Auto 85.7 % (45-73); Platelet Count 194 X10*3/uL (160-400); Red Cell Distribution Width 12.5 % (11.0-16.0); White Blood Count 6.5 X10*3/uL (4.8-10.8)
[2022-07-10 07:18] LABS: Anion Gap 18 (12-20); Blood Urea Nitrogen 10 mg/dL (9-16); Calcium 9.1 mg/dL (8.4-10.2); Carbon Dioxide 22 mmol/L (22-29); Chloride 101 mmol/L (96-108); Creatinine Clr Calc Pharmacy 123.7; Estimated Glomerular Filt Rate > 60; Glucose Random 113 mg/dL (60-115); Potassium 4.5 mmol/L (3.3-5.1); Sodium 136 mmol/L (135-145)
[2022-07-10] MEDS: Famotidine/PF 20 MG/2 ML VIAL IVPUSH (07:25)
[2022-07-10] MEDS: FLUoxetine HCl 20 MG CAPSULE PO (07:25)
[2022-07-10 07:38] VITALS: BP 123/69; PULSE 74; RESP 18; TEMP 36.2; O2SAT 96
--- NOTE | 2022-07-10 09:43 | MHC.CM.PN ---
Male 51 yrs s/p Gastric sleeve surgery. Patient left prior o being seen by Case management. Patient discharged home no services. Pt arranged for transportation.
--- NOTE | 2022-07-10 12:43 | HO.POSTANES ---
Post Anesthesia Evaluation Post Anesthesia Evaluation Vital Signs: Vital Signs Temp Pulse Resp BP Pulse Ox O2 Del Method 07/10/22 07:38 97.1 F 74 18 123/69 96 Room Air 07/10/22 04:00 97.7 F 77 16 134/75 97 CPAP Anesthesia: General Endotracheal-GETA Mental Status: Awake Pain Control: Satisfactory Nausea/Vomiting: None Hydration: Adequate Anesthesia-Related Issues: No Anes. Related Issues
== END 2022-07-10 09:59 | disposition home or self-care (01) | DRG 620 ==
LOC: HO.SSSA 11:31 → HO.S3 11:33
PROVIDERS: Physician Assistant; Physician Assistant Surgical; Admitting Provider Surgery; PCP Internal Medicine; Visit Provider Surgery
PROC: 0DB64Z3 Excision of Stomach, Percutaneous Endoscopic Approach, Vertical (ICD-10-PCS; CPT 43845; principal; 2022-07-09 09:10)
DX: E66.01 Morbid (severe) obesity due to excess calories (principal); Q43.3 Congenital malformations of intestinal fixation; K21.9 Gastro-esophageal reflux disease without esophagitis; I10 Essential (primary) hypertension; G47.00 Insomnia, unspecified; K76.0 Fatty (change of) liver, not elsewhere classified; F32.A Depression, unspecified; F41.9 Anxiety disorder, unspecified; Z68.30 Body mass index [BMI] 30.0-30.9, adult; G47.33 Obstructive sleep apnea (adult) (pediatric); Z20.822 Contact with and (suspected) exposure to COVID-19; Z79.899 Other long term (current) drug therapy
CPT/HCPCS: 36415; 80048; 85014; 85018; 85025; 86850; 86900; 86901; 87635; 88304; 88307; 88342; A4649; C9088; C9145; J0131; J0690; J1100; J2250; J2370; J2405; J2795; J3010

== ENCOUNTER → 2022-07-16 10:37 | Outpatient (BNVA) | payer OTHER, SELFPAY | PROVIDERS: PCP Internal Medicine; Referring Provider Internal Medicine; Visit Provider Physician Assistant Surgical | DX: Z13.89 Encounter for screening for other disorder (principal) ==

== ENCOUNTER → 2022-08-01 16:00 | Outpatient (BNVA) | payer OTHER, SELFPAY | PROVIDERS: PCP Internal Medicine; Visit Provider Physician Assistant ==

== ENCOUNTER 2022-09-24 16:34 | Outpatient (AMB) | payer OTHER, SELFPAY ==
--- NOTE | 2022-09-24 16:50 | MHC.OFFVISWM ---
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 Goal about 150- 155 lbs. Orthostaatic BP's are less symptomatic now. BP in am was 104/67. Meal plan per Dr Mendes: 3 shakes (all 1 scoop of 4:1 with almond milk) per day, bar and dinner of 2 forks veg and 4 forks protein Exercise - 5d/wk - 460 calories on bike over [address] - will start with personal companion at [facility] now. [facility] Medical History Anxiety and depression GERD (gastroesophageal reflux disease) History of Clostridioides difficile colitis History of pericarditis HTN (hypertension) Hx of Lyme disease Insomnia RUI on CPAP Surgical History Hx of colonoscopy Hx of endoscopy Family History Mother Hypertension Father No problems noted. Sister No problems noted. Daughter No problems noted. Daughter No problems noted. Social History Household Members: Significant Other Housing: House Are you a primary childcare administrator to a significant other at home: Yes Do you presently have visiting nurse or other home services: No Alcohol intake: current Alcohol intake frequency: former alcohol drinker Patient Tobacco Use Status: Never used Tobacco Assessment & Plan Assessment & Plan (1) Overweight: Code(s): E66.3 - Overweight Plan: Pt is doing exceptionally well at [facility] 3 months post op LSG. meal plan - will have 1 shake with 2 scoops 4:1 to make sure that he has 4 scoops each day. Exercise - cardio 4d/ ST with regional sales trainer 3d/week - continue with at leaast 2,ooo kcal burned per week Will send me weekly weights (expect 1.5 lbs per week) and if he wants any meal plan changes. Next appt with me in 6 weeks, will schedule appt with Ester when close to maintainence weight. (2) S/P laparoscopic sleeve gastrectomy: Code(s): Z98.84 - Bariatric surgery status Telehealth Telehealth Location of provider rendering services: practice address Location of patient: address on file Patient Identification confirmed using: Name, : Yes Telehealth method: video Patient verbally consented to treatment: Yes Patient verbally consented to billing insurance company: Yes Patient informed of any privacy concerns related to visit: Yes Coding Level of Care Code Global (97761) Diagnoses Overweight E66.3 S/P laparoscopic sleeve gastrectomy Z98.84
[2022-09-24 16:53] VITALS: BMI 27.7
== END 2022-09-24 17:18 | disposition home or self-care (01) ==
LOC: HO.HBS 16:34
PROVIDERS: PCP Internal Medicine; Visit Provider Physician Assistant
DX: E66.3 Overweight (principal); Z68.27 Body mass index [BMI] 27.0-27.9, adult; Z98.84 Bariatric surgery status; Z90.3 Acquired absence of stomach [part of]
CPT/HCPCS: 99024

== ENCOUNTER → 2022-09-24 16:34 | Outpatient (BNVA) | payer OTHER, SELFPAY | PROVIDERS: PCP Internal Medicine; Visit Provider Physician Assistant | DX: Z98.84 Bariatric surgery status (principal); I51.4 Myocarditis, unspecified ==

== ENCOUNTER 2022-12-20 10:02 | Outpatient (AMB) | payer OTHER, SELFPAY ==
--- NOTE | 2022-12-20 10:08 | MHC.OFFVISWM ---
Intake VS Expanded 12/20/22 10:13 BP 140/74 H Blood Pressure Location Rt brachial Blood Pressure Position Sitting Pulse 81 Pulse Source Pulse Oximeter Temp 97.4 F Temperature Source Temporal Artery Scan Pulse Oximetry 97 Oxygen Delivery Method Room Air Height 5 ft 6.5 in Weight 178 lb 9.6 oz BMI 28.4 Body Fat % 21.2 Body Fat Mass 38.0 Fat Free Mass 140.6 Visceral Fat Rating 10.0 Body Water % 57.0 Body Water Mass 101.8 Muscle Mass/Score 133.6 Basal Metabolic Rate/Score 1,842 Intake Visit Reasons: (OV) PO LSG 07/09/22 Allergies Seasonal Allergies Allergy (Severe, Verified 12/20/22 10:10) Unknown Medication List - Last Reconciled 12/20/22 by MEHRDAD Evans-Jo Ann fluoxetine (Prozac) 20 mg PO DAILY melatonin 3 mg PO BEDTIME PRN [id number] K 45 mg iron- 800 mcg-120 mcg (Bariatric Multivitamins) caps PO HPI HPI Comments History of Present Illness Details 52 yo man who is 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 Craves salty crunchy foods per dinner mostly. Wakes up at 7:15 am. Morning exercise 8:30 - 4:1 with UAM milk - 1 scoop 1 pm - 2 eggs with salt, 1/2 c vegetables. (may have bar at 11 am if not having second shake) 3pm - snacky' bar 5 pm - may snack on salty foods 7-8 pm - 3 - 4 oz protein and 2 oz vegetable After dinner - 50% of the time needs a snack - usually bar Exercise - travels often on weekends. 4-5 d/ week on bike - HIT intervals - 400+ calories [facility] 30 minutes 2 week. Will do treadmill these days - Post op complications: none RUI: still using CPAP DM: never HTN: resolved Hyperlipidemia: never GERD; 0 Satisfaction with present condition - satisfied [facility] Medical History Anxiety and depression GERD (gastroesophageal reflux disease) History of Clostridioides difficile colitis History of pericarditis HTN (hypertension) Hx of Lyme disease Insomnia RUI on CPAP Surgical History Hx of endoscopy Hx of colonoscopy Family History Mother Hypertension Father No problems noted. Sister No problems noted. Daughter No problems noted. Daughter No problems noted. Social History Household Members: Significant Other Housing: House Are you a primary daycare provider to a significant other at home: Yes Do you presently have visiting nurse or other home services: No Alcohol intake: current Alcohol intake frequency: former alcohol drinker Patient Tobacco Use Status: Never used Tobacco Physical Exam Const General: cooperative, healthy appearing, comfortable and no acute distress GI Inspection: Yes incision (all well healed) Palpation (GI): Soft to palpation, nontender, no guarding, no hernias and no masses Assessment & Plan Assessment & Plan (1) S/P laparoscopic sleeve gastrectomy: Code(s): Z98.84 - Bariatric surgery status Plan: Wants a food based plan with further weight loss. Will continue Celebrate MVI and stop 4:1 shakes. Coffee 9am - Celebrate Rebuild 2 scoops - add coffee - UAM 1 pm - 3 oz protien and 3 oz vegetable - 6 oz's 4 pm- 2 hb eggs OR bar - 1 egg adn 2 oz raw veg 7pm - 3 oz protien and 3 oz veg After dinner sugar free popsicle if hungry Exercise - needs some changes - same routine for a long time. 2 d strainer tender and ellitpical at gym - at leas 12/perico minutes - 400 perico home bike or treadmill - > 400cal Text me with weekly weights. Working on intuitive eat and exercise Labs and SS ordered, next aptp in 3 months with me. I spent 30 minutes in total with patient reviewing/updating records, examining the patient and counseling the patient on weight management as detailed above. Orders: Orders Lipid Panel Today E51.9 - Thiamine deficiency, unspecified, E53.8 - Deficiency of other specified B group vitamins, E66.3 - Overweight, I10 - Essential (primary) hypertension, K76.0 - Fatty (change of) liver, not elsewhere classified, Z98.84 - Bariatric surgery status IRON PROFILE Today E51.9 - Thiamine deficiency, unspecified, E53.8 - Deficiency of other specified B group vitamins, E66.3 - Overweight, I10 - Essential (primary) hypertension, K76.0 - Fatty (change of) liver, not elsewhere classified, Z98.84 - Bariatric surgery status Zinc Today E51.9 - Thiamine deficiency, unspecified, E53.8 - Deficiency of other specified B group vitamins, E66.3 - Overweight, I10 - Essential (primary) hypertension, K76.0 - Fatty (change of) liver, not elsewhere classified, Z98.84 - Bariatric surgery status Vitamin A Today E51.9 - Thiamine deficiency, unspecified, E53.8 - Deficiency of other specified B group vitamins, E66.3 - Overweight, I10 - Essential (primary) hypertension, K76.0 - Fatty (change of) liver, not elsewhere classified, Z98.84 - Bariatric surgery status C Reactive Protein Today E51.9 - Thiamine deficiency, unspecified, E53.8 - Deficiency of other specified B group vitamins, E66.3 - Overweight, I10 - Essential (primary) hypertension, K76.0 - Fatty (change of) liver, not elsewhere classified, Z98.84 - Bariatric surgery status Ferritin Today E51.9 - Thiamine deficiency, unspecified, E53.8 - Deficiency of other specified B group vitamins, E66.3 - Overweight, I10 - Essential (primary) hypertension, K76.0 - Fatty (change of) liver, not elsewhere classified, Z98.84 - Bariatric surgery status PTHI Today E51.9 - Thiamine deficiency, unspecified, E53.8 - Deficiency of other specified B group vitamins, E66.3 - Overweight, I10 - Essential (primary) hypertension, K76.0 - Fatty (change of) liver, not elsewhere classified, Z98.84 - Bariatric surgery status TSH reflex Free T4 Today E51.9 - Thiamine deficiency, unspecified, E53.8 - Deficiency of other specified B group vitamins, E66.3 - Overweight, I10 - Essential (primary) hypertension, K76.0 - Fatty (change of) liver, not elsewhere classified, Z98.84 - Bariatric surgery status Hemoglobin A1c Today E51.9 - Thiamine deficiency, unspecified, E53.8 - Deficiency of other specified B group vitamins, E66.3 - Overweight, I10 - Essential (primary) hypertension, K76.0 - Fatty (change of) liver, not elsewhere classified, Z98.84 - Bariatric surgery status RT home sleep study Today G47.30 - Sleep apnea, unspecified Insulin Today E51.9 - Thiamine deficiency, unspecified, E53.8 - Deficiency of other specified B group vitamins, E66.3 - Overweight, I10 - Essential (primary) hypertension, K76.0 - Fatty (change of) liver, not elsewhere classified, Z98.84 - Bariatric surgery status Complete Blood Count Auto Diff Today E51.9 - Thiamine deficiency, unspecified, E53.8 - Deficiency of other specified B group vitamins, E66.3 - Overweight, I10 - Essential (primary) hypertension, K76.0 - Fatty (change of) liver, not elsewhere classified, Z98.84 - Bariatric surgery status Vitamin B12 and Folate Today E51.9 - Thiamine deficiency, unspecified, E53.8 - Deficiency of other specified B group vitamins, E66.3 - Overweight, I10 - Essential (primary) hypertension, K76.0 - Fatty (change of) liver, not elsewhere classified, Z98.84 - Bariatric surgery status Comprehensive Met. Panel Today E51.9 - Thiamine deficiency, unspecified, E53.8 - Deficiency of other specified B group vitamins, E66.3 - Overweight, I10 - Essential (primary) hypertension, K76.0 - Fatty (change of) liver, not elsewhere classified, Z98.84 - Bariatric surgery status Vitamin B1 Today E51.9 - Thiamine deficiency, unspecified, E53.8 - Deficiency of other specified B group vitamins, E66.3 - Overweight, I10 - Essential (primary) hypertension, K76.0 - Fatty (change of) liver, not elsewhere classified, Z98.84 - Bariatric surgery status Vitamin D 25-OH Total Today E51.9 - Thiamine deficiency, unspecified, E53.8 - Deficiency of other specified B group vitamins, E66.3 - Overweight, I10 - Essential (primary) hypertension, K76.0 - Fatty (change of) liver, not elsewhere classified, Z98.84 - Bariatric surgery status Coding Level of Care Code Est Pt Level 4 (09908) Diagnoses S/P laparoscopic sleeve gastrectomy Z84
[2022-12-20 10:13] VITALS: BP 140/74; PULSE 81; TEMP 36.3; O2SAT 97; BMI 28.4
== END 2022-12-20 11:04 | disposition home or self-care (01) ==
PROVIDERS: PCP Internal Medicine; Visit Provider Physician Assistant
DX: E66.3 Overweight (principal); Z68.28 Body mass index [BMI] 28.0-28.9, adult; Z90.3 Acquired absence of stomach [part of]; Z98.84 Bariatric surgery status
CPT/HCPCS: 99214

== ENCOUNTER → 2022-12-20 10:02 | Outpatient (BNVA) | payer OTHER, SELFPAY | PROVIDERS: PCP Internal Medicine; Visit Provider Physician Assistant ==

== ENCOUNTER → 2023-01-29 12:58 | Outpatient (REF) | payer OTHER, SELFPAY | LOC: HO.SL 12:58 | PROVIDERS: PCP Internal Medicine; Visit Provider Physician Assistant | DX: G47.33 Obstructive sleep apnea (adult) (pediatric) (principal) | CPT/HCPCS: 95806 ==

== ENCOUNTER → 2023-01-29 13:09 | Outpatient (BNV) | payer OTHER, SELFPAY | PROVIDERS: PCP Internal Medicine; Visit Provider Psychiatry & Neurology Neurology | DX: G47.33 Obstructive sleep apnea (adult) (pediatric) (principal) | CPT/HCPCS: 95806 ==

== ENCOUNTER 2023-04-16 09:13 | Outpatient (REF) | payer OTHER, SELFPAY ==
[2023-04-16 09:48] LABS: MANUAL DIFF FLAG NO
[2023-04-16 10:33] LABS: Basophils Absolute Auto 0.1 X10*3/uL (0.0-0.2); Basophils Percent Auto 1.4 % (0-2); Eosinophils Absolute Auto 0.2 X10*3/uL (0.0-0.4); Eosinophils Percent Auto 4.5 % (0-4); Hematocrit 41.3 % (42.0-52.0); Imm Gran Abs Auto 0.01 X10*3/uL (0.00-0.03); Imm Gran Pct Auto 0.2 % (0.0-0.4); Lymphocytes Absolute Auto 1.8 X10*3/uL (1.2-4.9); Lymphocytes Percent Auto 39.9 % (20-40); Mean Corpuscular HGB Conc 33.9 g/dl (31.0-36.0); Mean Corpuscular Volume 91.4 fL (80.0-98.0); Mean Platelet Volume 10.7 fL (9.4-12.4); Monocytes Absolute Auto 0.4 X10*3/uL (0.1-1.2); Monocytes Percent Auto 7.9 % (2-11); Neutrophils Percent Auto 46.1 % (45-73); Platelet Count 164 X10*3/uL (160-400); Red Blood Count 4.52 X10*6/uL (4.60-5.80); Red Cell Distribution Width 11.9 % (11.0-16.0); White Blood Count 4.4 X10*3/uL (4.8-10.8)
[2023-04-16 10:45] LABS: Estimated Average Glucose 97 mg/dL
[2023-04-16 11:21] LABS: Alanine Aminotransferase 24 U/L (0-40); Albumin Level 4.1 g/dL (3.5-5.0); Alkaline Phosphatase 58 U/L (39-117); Anion Gap 12 (12-20); Aspartate Amino Transferase 39 U/L (5-37); Bilirubin Total 0.6 mg/dL (0.0-1.0); Blood Urea Nitrogen 17 mg/dL (9-16); C Reactive Protein < 0.10 mg/dL (< or = 0.50); Calcium 9.2 mg/dL (8.4-10.2); Carbon Dioxide 27 mmol/L (22-29); Chloride 106 mmol/L (96-108); Cholesterol 187 mg/dL (<200); Estimated Glomerular Filt Rate > 60; Glucose Random 91 mg/dL (60-115); HDL Cholesterol 73 mg/dL (>40); Iron 124 mcg/dL (45-160); LDL Cholesterol Calculated 102 mg/dL (<100); Percent Iron Saturation 41 % (15-50); Potassium 4.2 mmol/L (3.3-5.1); Sodium 141 mmol/L (135-145); Total Iron Binding Capacity 303 mcg/dL (228-428); Total Protein 6.9 g/dL (6.5-8.0); Triglycerides 60 mg/dL (<150); Unsaturated Iron Binding 179 ug/dL
[2023-04-16 11:30] LABS: Ferritin 108 ng/mL (20-250); Insulin 4 uU/mL (2-29); TSH reflex Free T4 0.96 uIU/mL (0.32-4.0); Vitamin D 25-OH Total 51.3 ng/mL (>30)
[2023-04-16 11:43] LABS: Folate 13.2 ng/mL (> or = 4.0)
[2023-04-16 12:22] LABS: Vitamin B12 713 pg/mL (200-900)
[2023-04-19 07:28] LABS: Zinc 76 mcg/dL (60-130)
[2023-04-21 02:23] LABS: Vitamin A 49 mcg/dL (38-98)
[2023-04-22 01:28] LABS: Vitamin B1 23 nmol/L (8-30)
== END 2023-04-16 09:14 | disposition home or self-care (01) ==
LOC: HO.LAB 09:13
PROVIDERS: PCP Internal Medicine; Visit Provider Physician Assistant
DX: E66.3 Overweight (principal); K76.0 Fatty (change of) liver, not elsewhere classified; I10 Essential (primary) hypertension; E51.9 Thiamine deficiency, unspecified; E53.8 Deficiency of other specified B group vitamins; Z98.84 Bariatric surgery status
CPT/HCPCS: 36415; 80053; 80061; 82306; 82607; 82728; 82746; 83036; 83525; 83540; 84425; 84443; 84590; 84630; 85025; 86140

== ENCOUNTER 2023-04-18 09:31 | Outpatient (AMB) | payer OTHER, SELFPAY ==
--- NOTE | 2023-04-18 09:32 | A.OFFVIS_ITS ---
Intake VS Expanded 04/18/23 09:43 BP 122/71 Blood Pressure Location Rt brachial Blood Pressure Position Sitting Pulse 95 Pulse Source Pulse Oximeter Temp 96.5 F L Temperature Source Tympanic Pulse Oximetry 95 Oxygen Delivery Method Room Air Height 5 ft 6.5 in Weight 178 lb 12.8 oz BMI 28.4 Body Fat % 23.7 Body Fat Mass 42.4 Fat Free Mass 136.4 Visceral Fat Rating 5.0 Body Water % 54.3 Body Water Mass 97.0 Muscle Mass/Score 129.6 Basal Metabolic Rate/Score 1,795 Intake Visit Reasons: (OV) PO LSG 07/09/22 Allergies Seasonal Allergies Allergy (Severe, Verified 04/18/23 09:45) Unknown Medication List - Last Reconciled 04/18/23 by Charlene Hernández PA-C fluoxetine (Prozac) 20 mg PO DAILY melatonin 3 mg PO BEDTIME PRN asxqaaowistz-xif-erog-FA-vit K 45 mg iron- 800 mcg-120 mcg (Bariatric Multivitamins) caps PO HPI HPI Comments History of Present Illness Details Pt is now 9 months s/p LSG. [employer] weight of 240.4 lbs, TBWL is 61.6 lbs or 25.6%. Goal is still under 170 lbs. Had some weight gain over the holidays, stopped his overeating of bars and lost 8 lbs. Exercise - runs treadmill - hill program 30 minutes - 350 - 400. 5 d/ week. 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 Meal plan - goal of 70 - 75 grams per day 8am - coffee with oatmilk 12 oz oatmil k, bar 20 grams 11 am - shake - Rebuild with UAM 1 pm - 10 forks protein and vegetalbe 4pm - bar 7pm - 10 forks each Intake VS Expanded 12/20/2309:13 BP 140/74 H Blood Pressure Loc ation Rt brachial Blood Pressure Pos ition Sitting Pulse 81 Pulse Source Pulse Oximeter Temp 97.4 F Temperature Source Temporal Artery S can Pulse Oximetry 97 Oxygen Delivery Me thod Room Air Height 5 ft 6.5 in Weight 178 lb 9.6 oz BMI 28.4 Body Fat % 21.2 Body Fat Mass 38.0 Fat Free Mass 140.6 Visceral Fat Ratin g 10.0 Body Water % 57.0 Body Water Mass 101.8 Muscle Mass/Score 133.6 Basal Metabolic Ra te/Score 1,842 Intake Visit Reasons: (OV) PO LSG 07/09/22 Allergies Seasonal Allergies Allergy (Severe, Verified 12/20/22 10:10) History of Present Illness Details 52 yo man who is now 6 mos s/p LSG . [employer] weight of 240 .4 lbs, TBWL is 61 .8 lbs or 25.7%. C raves salty crunch y foods per dinner mostly. Wakes up at 7:15 am. [place] exercise 8:30 - 4:1 with UAM mil k - 1 scoop1 pm - 2 eggs with salt, 1/2 c vegetables. (may have bar at 11 am if not havin g second shake)3pm - snacky' bar5 pm - may snack on salty foods7-8 pm - 3 - 4 oz protein and 2 oz vegetabl eAfter dinner - 50 % of the time need s a snack - usuall y bar Exercise - travels often on w eekends. 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 Will do tread mill these days - Post op complicat ions: none RUI: st ill using CPAP DM: never HTN: resolv ed Hyperlipidemia: never GERD; 0 Sa tisfaction with pr esent condition - satisfied [facility] Medical History (Updated 09/24/22 @ 17:14 by MAYRA EvansC) Insomnia Anxiety and depression RUI on CPAP Hx of Lyme disease History of pericarditis HTN (hypertension) History of Clostridioides difficile colitis GERD (gastroesophageal reflux disease) Surgical History (Updated 04/18/23 @ 09:36 by Jessica Barahona CMA) Hx of laparoscopic partial gastrectomy Hx of endoscopy Hx of colonoscopy Family History Mother Hypertension Father No problems noted. Sister No problems noted. Daughter No problems noted. Daughter No problems noted. 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 Average 12 perico minute. 2d/ week - speed 5.5 - 1-6 - 400 calories too much protein 10 am- bar 1pm - 6 forks eahc 4pm- shake 7pm- 6 forks each Next appt in 3 months with me Will text me with how he is doing with these changes. I spent 30 minutes in total with patient reviewing/updating records, examining the patient and counseling the patient on weight management as detailed above. (2) Overweight: Code(s): E66.3 - Overweight Plan: see above Coding Level of Care Code Est Pt Level 4 (36130) Diagnoses S/P laparoscopic sleeve gastrectomy Z98.84 Overweight E66.3
[2023-04-18 09:43] VITALS: BP 122/71; PULSE 95; TEMP 35.8; O2SAT 95; BMI 28.4
== END 2023-04-18 10:12 | disposition home or self-care (01) ==
PROVIDERS: PCP Internal Medicine; Visit Provider Physician Assistant
DX: E66.3 Overweight (principal); Z68.28 Body mass index [BMI] 28.0-28.9, adult; Z90.3 Acquired absence of stomach [part of]; Z98.84 Bariatric surgery status
CPT/HCPCS: 99214

== ENCOUNTER → 2023-04-18 09:31 | Outpatient (BNVA) | payer OTHER, SELFPAY | PROVIDERS: PCP Internal Medicine; Visit Provider Physician Assistant ==

== ENCOUNTER 2023-09-05 10:24 | Outpatient (AMB) | payer OTHER, SELFPAY ==
--- NOTE | 2023-09-05 10:28 | A.OFFVIS_ITS ---
VS Expanded 09/05/23 10:41 BP 139/75 Blood Pressure Location Rt brachial Blood Pressure Position Sitting Pulse 85 Pulse Source Pulse Oximeter Temp 98.3 F Temperature Source Temporal Artery Scan Pulse Oximetry 97 Oxygen Delivery Method Room Air Height 5 ft 6.5 in Weight 189 lb 3.2 oz BMI 30.1 Body Fat % 23.9 Body Fat Mass 45.2 Fat Free Mass 144.0 Visceral Fat Rating 12.0 Body Water % 54.9 Body Water Mass 103.8 Muscle Mass/Score 137.0 Basal Metabolic Rate/Score 1,898 Intake Visit Reasons: (OV) PO LSG 07/09/22 Inventory Associate Required: No Allergies Seasonal Allergies Allergy (Severe, Verified 09/05/23 10:33) Unknown Medication List - Last Reconciled 09/05/23 by MEHRDAD Saldaña fluoxetine (Prozac) 20 mg PO DAILY melatonin 3 mg PO BEDTIME PRN pokjkxokqfvq-cjz-ztsf-FA-vit K 45 mg iron- 800 mcg-120 mcg (Bariatric Multivitamins) caps PO HPI Comments Details: This?a?52?yo male who is s/p LSG without hiatal hernia repair on?07/09/2022. Presents for 1 year 2 month post op visit. Weight today is 189.2 pounds, with a BMI of 30.1. There has been a 51.2 pound weight loss,(initial weight 240.4 pounds) since starting the program on 10/13/2020 reflecting a 21.2 % total body weight loss and a weight loss of 24.8 pounds since surgery (operative weight 214 pounds) reflecting a 11.5 % TBWL since surgery. No complaints of nausea, emesis, abdominal pain or reflux. Reports infrequent but normal bowel movements every 2-3 days and uses stool softeners regularly. He has been eating more and less structure at mealtime at night, snacking more, dealing with his mother who has dementia. He has had an increase in ETOH beverages. 0-4 per night. Present meal plan includes: (ideally) - otherwise take out, fries, etoh barebells bar 20 gm 2 eggs another bar meal - protein and veg, not counting Drinking 32 oz water ? Exercise routine includes: strength training 2 days per week running 4-5 days per week 5 k, 400 perico Any post op complications: none RUI: improved DM: never HTN: resolved Hyperlipidemia: never GERD:?0-5 scale ??0 = no symptoms ??1 = symptoms noticeable but not bothersome 2 =symptoms bothersome but not daily ? 3 = symptoms bothersome and daily 4 = symptoms affect daily activities 5 = symptoms are incapacitating, unable to do daily activities ? How bad is the heartburn: 0 ? Heartburn while lying down: 0 ? Heartburn when standing up: 0 ? Heartburn after meals: 0 ? Does heartburn change your diet: 0 ? Does heartburn wake you up from sleep: 0 ? Do you have difficulty swallowin ? Do you have pain with swallowin ? If you take medicine for your reflux, does this affect your daily life: 0 Satisfaction with present condition - satisfied or not satisfied: disatisfied [facility] Medical History Insomnia Anxiety and depression RUI on CPAP Hx of Lyme disease History of pericarditis HTN (hypertension) History of Clostridioides difficile colitis GERD (gastroesophageal reflux disease) Surgical History Hx of laparoscopic partial gastrectomy Hx of endoscopy Hx of colonoscopy Family History Mother Hypertension Father No problems noted. Sister No problems noted. Daughter No problems noted. Daughter No problems noted. 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 Do you presently have visiting nurse or other home services: No Alcohol intake: current Alcohol intake frequency: a few times a week Patient Tobacco Use Status: Never used Tobacco Review of Systems Const All systems reviewed & are unremarkable except as noted in HPI and below Physical Exam Const General: cooperative and no acute distress Orientation/consciousness: patient oriented x3 Resp Effort & Inspection: normal respiratory effort Auscultation: clear to auscultation bilaterally Cardio Rate: regular rate Rhythm: regular rhythm GI Inspection: Yes normal to inspection and Yes incision (well healed) Palpation (GI): Soft to palpation and no masses Neuro General: patient oriented x3 Assessment & Plan Assessment & Plan (1) S/P laparoscopic sleeve gastrectomy: Code(s): Z98.84 - Bariatric surgery status Category: Surgical Plan: We will restart a structured meal plan: Celebrate rebuild 1.5 scoop in 10 oz almond milk Bear bowels bar, 20 g protein Yi yogurt with half cup fresh berries Meal 6 forks protein 6 forks vegetables 64 oz of water. Continue current exercise regimen. Consider adding yoga once a week Check 1 year postop labs. Orders: Orders Insulin Today E51.9 - Thiamine deficiency, unspecified, E53.8 - Deficiency of other specified B group vitamins, G47.30 - Sleep apnea, unspecified, I10 - Essential (primary) hypertension, K76.0 - Fatty (change of) liver, not elsewhere classified, Z98.84 - Bariatric surgery status Complete Blood Count Auto Diff Today E51.9 - Thiamine deficiency, unspecified, E53.8 - Deficiency of other specified B group vitamins, G47.30 - Sleep apnea, unspecified, I10 - Essential (primary) hypertension, K76.0 - Fatty (change of) liver, not elsewhere classified, Z98.84 - Bariatric surgery status Vitamin B1 Today E51.9 - Thiamine deficiency, unspecified, E53.8 - Deficiency of other specified B group vitamins, G47.30 - Sleep apnea, unspecified, I10 - Essential (primary) hypertension, K76.0 - Fatty (change of) liver, not elsewhere classified, Z98.84 - Bariatric surgery status C Reactive Protein Today E51.9 - Thiamine deficiency, unspecified, E53.8 - Deficiency of other specified B group vitamins, G47.30 - Sleep apnea, unspecified, I10 - Essential (primary) hypertension, K76.0 - Fatty (change of) liver, not elsewhere classified, Z98.84 - Bariatric surgery status TSH reflex Free T4 Today E51.9 - Thiamine deficiency, unspecified, E53.8 - Deficiency of other specified B group vitamins, G47.30 - Sleep apnea, unspecified, I10 - Essential (primary) hypertension, K76.0 - Fatty (change of) liver, not elsewhere classified, Z98.84 - Bariatric surgery status Hemoglobin A1c Today E51.9 - Thiamine deficiency, unspecified, E53.8 - Deficiency of other specified B group vitamins, G47.30 - Sleep apnea, unspecified, I10 - Essential (primary) hypertension, K76.0 - Fatty (change of) liver, not elsewhere classified, Z98.84 - Bariatric surgery status Basic Metabolic Panel Today E51.9 - Thiamine deficiency, unspecified, E53.8 - Deficiency of other specified B group vitamins, G47.30 - Sleep apnea, unspecified, I10 - Essential (primary) hypertension, K76.0 - Fatty (change of) liver, not elsewhere classified, Z98.84 - Bariatric surgery status Lipid Panel Today E51.9 - Thiamine deficiency, unspecified, E53.8 - Deficiency of other specified B group vitamins, G47.30 - Sleep apnea, unspecified, I10 - Essential (primary) hypertension, K76.0 - Fatty (change of) liver, not elsewhere classified, Z98.84 - Bariatric surgery status IRON PROFILE Today E51.9 - Thiamine deficiency, unspecified, E53.8 - Deficiency of other specified B group vitamins, G47.30 - Sleep apnea, unspecified, I10 - Essential (primary) hypertension, K76.0 - Fatty (change of) liver, not elsewhere classified, Z98.84 - Bariatric surgery status Vitamin B12 and Folate Today E51.9 - Thiamine deficiency, unspecified, E53.8 - Deficiency of other specified B group vitamins, G47.30 - Sleep apnea, unspecified, I10 - Essential (primary) hypertension, K76.0 - Fatty (change of) liver, not elsewhere classified, Z98.84 - Bariatric surgery status Zinc Today E51.9 - Thiamine deficiency, unspecified, E53.8 - Deficiency of other specified B group vitamins, G47.30 - Sleep apnea, unspecified, I10 - Essential (primary) hypertension, K76.0 - Fatty (change of) liver, not elsewhere classified, Z98.84 - Bariatric surgery status Vitamin A Today E51.9 - Thiamine deficiency, unspecified, E53.8 - Deficiency of other specified B group vitamins, G47.30 - Sleep apnea, unspecified, I10 - Essential (primary) hypertension, K76.0 - Fatty (change of) liver, not elsewhere classified, Z98.84 - Bariatric surgery status Ferritin Today E51.9 - Thiamine deficiency, unspecified, E53.8 - Deficiency of other specified B group vitamins, G47.30 - Sleep apnea, unspecified, I10 - Essential (primary) hypertension, K76.0 - Fatty (change of) liver, not elsewhere classified, Z98.84 - Bariatric surgery status PTHI Today E51.9 - Thiamine deficiency, unspecified, E53.8 - Deficiency of othe r specified B group vitamins, G47.30 - Sleep apnea, unspecified, I10 - Essential (primary) hypertension, K76.0 - Fatty (change of) liver, not elsewhere classified, Z98.84 - Bariatric surgery status Vitamin D 25-OH Total Today E51.9 - Thiamine deficiency, unspecified, E53.8 - Deficiency of other specified B group vitamins, G47.30 - Sleep apnea, unspecified, I10 - Essential (primary) hypertension, K76.0 - Fatty (change of) liver, not elsewhere classified, Z98.84 - Bariatric surgery status
[2023-09-05 10:41] VITALS: BP 139/75; PULSE 85; TEMP 36.8; O2SAT 97; BMI 30.1
== END 2023-09-05 11:49 | disposition home or self-care (01) ==
PROVIDERS: PCP Internal Medicine; Visit Provider Physician Assistant Surgical
DX: E66.9 Obesity, unspecified (principal); Z68.30 Body mass index [BMI] 30.0-30.9, adult; Z90.3 Acquired absence of stomach [part of]; Z98.84 Bariatric surgery status
CPT/HCPCS: 99214

== ENCOUNTER → 2023-09-05 10:24 | Outpatient (BNVA) | payer OTHER, SELFPAY | PROVIDERS: PCP Internal Medicine; Visit Provider Physician Assistant Surgical ==